=== PATIENT | male | born 1960 | race Caucasian/White ===

== ENCOUNTER 2017-01-27 18:25 | Inpatient (IN) | payer OTHER ==
[~2017-01-27] VITALS: Ht 177.8 cm; Wt 96.0 kg
[~2017-01-27 18:25] MED LIST: VANCOMYCIN INJ 1,300 MG in SODIUM CHLORIDE 0.9% 250ML 250 ML IV SCH
[2017-01-27] MEDS ORDERED: KETOROLAC TROMETHAMINE 30 MG/ML VIAL IV STA (19:03)
[2017-01-27] MEDS ORDERED: ACETAMINOPHEN 500 MG TAB PO STA (19:03)
[2017-01-27] MEDS ORDERED: PIPERACILLIN/TAZOBACTAM 4.5 GM/100ML D5W IV STA (19:03)
[2017-01-27] MEDS ORDERED: SODIUM CHLORIDE 0.9% 1000ML 1,000 ML IV ONE (19:03)
--- NOTE | 2017-01-27 19:12 | EMERGENCY ROOM VISIT NOTE ---
History Report prepared by Shiraz: Karla Cash Under the Supervision of: Dr. Juancarlos Brumfield M.D. First contact with patient: 18:57 Chief Complaint: INFECTION Stated Complaint: BITE ON RT SIDE OF CHEST/UNDER ARMPIT, ACHEY History of Present Illness The patient is a 56 year old male who presents to the Emergency Room with complaints of an infection on the right side of his chest and under his right axilla that began 3 days ago. The patient states that he also has had a headache since the onset of this infection, and feels like he has the flu. He is febrile and has a stuffy nose and a dry throat. The patient reports that he has not eaten in 3 days. He states that his ears feel like "they are full of water." He denies urinary symptoms, a sore throat, vomiting, and diarrhea. The patient is not diabetic. Source of History: patient Onset: 3 days ago Position: chest (right), other (underneath right axilla ) Quality: other (infection) Associated Symptoms: + fevers (Additional symptoms: stuffy nose, dry throat) , No sorethroat, No vomiting, No diarrhea, No urinary symptoms Review of Systems See HPI for pertinent positives & negatives. A total of 10 systems reviewed and were otherwise negative. Past Medical & Surgical Medical Problems: (1) blood clot leg (2) Cellulitis of arm (3) Ulcer Family History Cancer Diabetes mellitus FH: heart disease FH: hypertension Social History Smoking Status: Never Smoker Alcohol Use: none Current/Historical Medications No Active Prescriptions or Reported Meds Allergies Coded Allergies: No Known Allergies (Unverified , 01/27/17) Physical Exam Vital Signs Date Time Temp Pulse Resp B/P (MAP) Pulse Ox O2 Delivery O2 Flow Rate FiO2 01/27/17 20:48 87 01/27/17 20:44 37.4 88 18 118/76 95 Room Air 01/27/17 19:42 108 18 139/97 94 Room Air 01/27/17 19:31 Room Air 01/27/17 18:43 38.8 123 18 150/99 95 Room Air Physical Exam GENERAL: Patient is in no acute distress. HEENT: No acute trauma, normocephalic atraumatic, mucous membranes moist, no nasal congestion, no scleral icterus. NECK: No stridor, no adenopathy, no meningismus, trachea is midline. LUNGS: Clear to auscultation bilaterally, no wheeze, no rhonchi, breath sounds equal. HEART: Tachycardic with a regular rhythm. No murmurs. ABDOMEN: Soft, nontender, bowel sounds positive, no hernias, no peritonitis. EXTREMITIES: No cyanosis or edema, full range of motion of all the joints without pain or difficulty, no signs for acute trauma. NEUROLOGIC: Oriented x 3, no acute motor or sensory deficits, no focal weakness. SKIN: Tender, erythematous, presumed abscess in right axilla with surrounding cellulitis around 10 cm in diameter. Medical Decision & Procedures ER Provider Diagnostic Interpretation: Radiology results as stated below per my review and radiologist interpretation: RIGHT AXILLARY ULTRASOUND CLINICAL HISTORY: Bite. Evaluate for abscess. COMPARISON STUDY: No previous studies for comparison. FINDINGS: Note is made of a 3.1 x 0.3 x 3.1 cm subcutaneous hypoechoic focus within the right axilla. IMPRESSION: 3.1 x 0.3 x 3.1 cm subcutaneous hypoechoic focus within the right axilla. This does not appear to represent a well-defined fluid collection and could reflect phlegmon however a small developing abscess could appear similar. Electronically signed by: Nelson Santos M.D. 01/27/2017 8:32 PM Dictated Date/Time: 01/27/2017 8:31 PM X-ray results as stated below per interpretation by me and the radiologist: CHEST ONE VIEW PORTABLE CLINICAL HISTORY: Sepsis. COMPARISON STUDY: No previous studies for comparison. FINDINGS: There is mild elevation of the right hemidiaphragm. Minimal right lower lung opacity favors atelectasis. There is no consolidation. Cardiac size is normal. There is no evidence of pulmonary edema. No pneumothorax or pleural effusion is identified. IMPRESSION: 1. No acute cardiopulmonary findings. 2. Mild elevation of the right hemidiaphragm with subsegmental right lower lung atelectasis. Electronically signed by: Nelson Santos M.D. 01/27/2017 7:52 PM Dictated Date/Time: 01/27/2017 7:51 PM Laboratory Results 01/27/17 19:19 Red Blood Count 5.42, Mean Corpuscular Volume 88.4, Mean Corpuscular Hemoglobin 31.0, Mean Corpuscular Hemoglobin Concent 35.1, Mean Platelet Volume 9.3, Neutrophils (%) (Auto) 81.1, Lymphocytes (%) (Auto) 8.4, Monocytes (%) (Auto) 9.9, Eosinophils (%) (Auto) 0.0, Basophils (%) (Auto) 0.4, Neutrophils # (Auto) 10.00, Lymphocytes # (Auto) 1.04, Monocytes # (Auto) 1.22, Eosinophils # (Auto) 0.00, Basophils # (Auto) 0.05 01/27/17 19:19 Test 01/27/17 19:19 01/27/17 19:29 White Blood Count 12.34 K/uL (4.8-10.8) Red Blood Count 5.42 M/uL (4.7-6.1) Hemoglobin 16.8 g/dL (14.0-18.0) Hematocrit 47.9 % (42-52) Mean Corpuscular Volume 88.4 fL (80-100) Mean Corpuscular Hemoglobin 31.0 pg (25-34) Mean Corpuscular Hemoglobin Concent 35.1 g/dl (32-36) Platelet Count 266 K/uL (130-400) Mean Platelet Volume 9.3 fL (7.4-10.4) Neutrophils (%) (Auto) 81.1 % Lymphocytes (%) (Auto) 8.4 % Monocytes (%) (Auto) 9.9 % Eosinophils (%) (Auto) 0.0 % Basophils (%) (Auto) 0.4 % Neutrophils # (Auto) 10.00 K/uL (1.4-6.5) Lymphocytes # (Auto) 1.04 K/uL (1.2-3.4) Monocytes # (Auto) 1.22 K/uL (0.11-0.59) Eosinophils # (Auto) 0.00 K/uL (0-0.5) Basophils # (Auto) 0.05 K/uL (0-0.2) RDW Standard Deviation 41.6 fL (36.4-46.3) RDW Coefficient of Variation 12.9 % (11.5-14.5) Immature Granulocyte % (Auto) 0.2 % Immature Granulocyte # (Auto) 0.03 K/uL (0.00-0.02) Prothrombin Time 11.4 SECONDS (9.0-12.0) Prothromb Time International Ratio 1.1 (0.9-1.1) Activated Partial Thromboplast Time 32.0 SECONDS (21.0-31.0) Partial Thromboplastin Ratio 1.2 Anion Gap 10.0 mmol/L (3-11) Est Creatinine Clear Calc Drug Dose 75.5 ml/min Estimated GFR () 71.7 Estimated GFR (Non- 61.9 BUN/Creatinine Ratio 11.9 (10-20) Calcium Level 9.3 mg/dl (8.5-10.1) Total Bilirubin 1.4 mg/dl (0.2-1) Aspartate Amino Transf (AST/SGOT) 27 U/L (15-37) Alanine Aminotransferase (ALT/SGPT) 42 U/L (12-78) Alkaline Phosphatase 98 U/L (45-117) Total Protein 8.6 gm/dl (6.4-8.2) Albumin 4.2 gm/dl (3.4-5.0) Globulin 4.4 gm/dl (2.5-4.0) Albumin/Globulin Ratio 1.0 (0.9-2) Lyme Disease IgG Antibody NEG (NEG) Lyme Disease IgM Antibody NEG (NEG) Bedside Lactic Acid Venous 1.43 mmol/L (0.90-1.70) Laboratory results reviewed by me. Medications Administered Medications (Trade) Dose Ordered Sig/Diamond Route Start Time Stop Time Status Last Admin Dose Admin Sodium Chloride 1,000 ml @ 999 mls/hr Q1H1M ONCE IV 01/27/17 19:03 01/27/17 20:03 DC 01/27/17 19:33 999 MLS/HR Piperacillin Sod/ Tazobactam Sod (Zosyn Iv) 4.5 gm ONE STAT IV 01/27/17 19:03 01/27/17 19:08 DC 01/27/17 19:32 4.5 GM Acetaminophen (Tylenol Tab) 1,000 mg NOW STAT PO 01/27/17 19:03 01/27/17 19:08 DC 01/27/17 19:33 1,000 MG Ketorolac Tromethamine (Toradol Inj) 30 mg NOW STAT IV 01/27/17 19:03 01/27/17 19:08 DC 01/27/17 19:33 30 MG Vancomycin HCl (Vancomycin 1gm/ 270ml Nss) 1 gm NOW STAT IV 01/27/17 21:25 6/7/17 21:26 DC 01/27/17 22:18 1 GM ED Course 1899: The patient was evaluated in room B7. A complete history and physical exam was performed. 1902: Ordered Toradol Inj 30 mg IV, Tylenol Tab 1,000 mg PO, Zosyn Iv 4.5 mg IV , Sodium Chloride 1,000 ml @ 999 mls/hr IV. 2124: Ordered Vancomycin HCl 1 gm IV. 2349: Upon reexamination the patient is resting comfortably. I discussed results and treatment plan with the patient. He verbalizes agreement and understanding. The patient will be evaluated for further management. Medical Decision The patient is a 56 year old male who presents to the ED with complaints of an infection. Differential diagnoses considered include abscess, cellulitis, bacteremia, sepsis, dehydration, electrolyte imbalance, and pneumonia. There is a mild leukocytosis which would be consistent with infection. No concerning anemia. No significant electrolyte abnormality, kidney failure or hepatitis. Blood cultures are pending. Chest x-ray does not show pneumonia or CHF. Ultrasound shows a phlegmon in the area of the cellulitis, no obvious abscess. Lactic acid level is not elevated making severe sepsis less likely. The patient received IV saline, he was given IV Zosyn and IV vancomycin. He received oral Tylenol. He received IV Toradol. The patient is doing well, he feels improved. He does have early signs of sepsis/SIRS. I do think admission/observation is warranted. He may even need surgical intervention if this collection becomes more of an abscess. I did speak to the patient and case management. The on-call hospitalist was consulted. Medication Reconciliation: I attest that I have personally reviewed the patient' s current medication list. Blood Pressure Screening: Patient was found to have normal blood pressure on screening and does not require follow-up. Consults Time Called: [phone] Consulting Physician: Dr. Willams - Internal Medicine Returned Call: [phone] Discussed the patient's case. The patient will be evaluated for further management. Impression Primary Impression: SIRS (systemic inflammatory response syndrome) Additional Impressions: Cellulitis Fever Scribe Attestation The scribe's documentation has been prepared under my direction and personally reviewed by me in its entirety. I confirm that the note above accurately reflects all work, treatment, procedures, and medical decision making performed by me. Departure Information Dispostion Being Evaluated By Hospitalist Prescriptions No Active Prescriptions or Reported Meds Referrals No Doctor, Assigned (PCP) Patient Instructions My [facility] Problem Qualifiers
[2017-01-27 19:38] LABS: BASO % 0.4 %; BASO ABS # 0.05 K/uL (0-0.2); COMPLETE YES; HEMATOCRIT 47.9 % (42-52); IG% 0.2 %; LYMPH % 8.4 %; LYMPH ABS # 1.04 K/uL (1.2-3.4); MEAN CELL VOLUME 88.4 fL (80-100); MEAN CORPUSCULAR HGB CONC 35.1 g/dl (32-36); MEAN PLATELET VOLUME 9.3 fL (7.4-10.4); MONO % 9.9 %; NEUT % 81.1 %; PLATELET COUNT 266 K/uL (130-400); RED BLOOD COUNT 5.42 M/uL (4.7-6.1); WHITE BLOOD COUNT 12.34 K/uL (4.8-10.8)
--- NOTE | 2017-01-27 19:53 | DIAGNOSTIC IMAGING REPORT ---
CHEST ONE VIEW PORTABLE CLINICAL HISTORY: Sepsis. COMPARISON STUDY: No previous studies for comparison. FINDINGS: There is mild elevation of the right hemidiaphragm. Minimal right lower lung opacity favors atelectasis. There is no consolidation. Cardiac size is normal. There is no evidence of pulmonary edema. No pneumothorax or pleural effusion is identified. IMPRESSION: 1. No acute cardiopulmonary findings. 2. Mild elevation of the right hemidiaphragm with subsegmental right lower lung atelectasis. Electronically signed by: Nelson Santos M.D. 01/27/2017 7:52 PM Dictated Date/Time: 01/27/2017 7:51 PM
[2017-01-27 19:54] LABS: INR 1.1 (0.9-1.1); PARTIAL THROMBOPLASTIN RATIO 1.2; PROTHROMBIN TIME (PATIENT) 11.4 SECONDS (9.0-12.0)
[2017-01-27 19:57] LABS: BUN/CREATININE RATIO 11.9 (10-20); CALCIUM 9.3 mg/dl (8.5-10.1); CREATININE 1.3 mg/dl (0.60-1.40); POTASSIUM 3.8 mmol/L (3.5-5.1)
--- NOTE | 2017-01-27 20:34 | DIAGNOSTIC IMAGING REPORT ---
RIGHT AXILLARY ULTRASOUND CLINICAL HISTORY: Bite. Evaluate for abscess. COMPARISON STUDY: No previous studies for comparison. FINDINGS: Note is made of a 3.1 x 0.3 x 3.1 cm subcutaneous hypoechoic focus within the right axilla. IMPRESSION: 3.1 x 0.3 x 3.1 cm subcutaneous hypoechoic focus within the right axilla. This does not appear to represent a well-defined fluid collection and could reflect phlegmon however a small developing abscess could appear similar. Electronically signed by: Nelson Santos M.D. 01/27/2017 8:32 PM Dictated Date/Time: 01/27/2017 8:31 PM
[2017-01-27] MEDS ORDERED: VANCOMYCIN 1GM/270ML NSS IV STA (21:25)
[2017-01-27] MEDS ORDERED: ZOLPIDEM TARTRATE 5 MG TAB PO PRN (21:45)
[2017-01-27] MEDS ORDERED: POLYETHYLENE (MIRALAX) 17 GM PACK PO PRN (21:45)
[2017-01-27] MEDS ORDERED: ONDANSETRON INJ 2 MG/ML 2 ML VIAL IV PRN (21:45)
[2017-01-27] MEDS ORDERED: TRAMADOL HCL 50 MG TAB PO PRN (21:45)
[2017-01-27] MEDS ORDERED: ALUMINUM/MAGNESIUM/SIMETH (MAALOX MAX) 30 ML UDC PO PRN (21:45)
[2017-01-27] MEDS ORDERED: MAGNESIUM HYDROXIDE SUSP 30 ML UDC PO PRN (21:45)
--- NOTE | 2017-01-27 22:32 | History and Physical ---
History & Physical Date & Time of Service: Jan 27, 2017 at 22:26 Chief Complaint: Bite On Rt Side Of Chest/Under Armpit, [place] Primary Care Physician: Kojo Alejandre M.D. History of Present Illness Source: patient 56 y/o M who denies a significant medical history. Pt noted a circular tender rash forming just below his R armpit. He developed a concomitant flu-like illness with fevers and malaise. He is unable to recall if he sustained a tick bite. [place] is a [place] and [place]. Past Medical/Surgical History Denies active medical issues. Family History CAD Social History Smoking Status: Never Smoker Multi-Drug Resistant Organisms History of MDRO: No Allergies Coded Allergies: No Known Allergies (Unverified , 01/27/17) Home Medications No Active Prescriptions or Reported Meds Review of Systems Constitutional: + fever, + chills, No sweats Eyes: No worsening of vision, No eye pain ENT: No hearing loss, No unusual epistaxis, No nasal symptoms Respiratory: No cough, No sputum, No wheezing Cardiovascular: No chest pain, No orthopnea, No PND Abdomen: No pain, No nausea, No vomiting Musculoskeletal: No joint pain, No muscle pain Genitourinary - Male: No hematuria, No dysuria, No urinary frequency, No urinary urgency Neurologic: No memory loss, No paralysis, No weakness Psychiatric: No depression symptoms Endocrine: No fatigue Hematologic / Lymphatic: No abnormal bleeding/bruising Integumentary: + rash, + new/changing skin lesions Allergic / Immunologic: No environmental allergies Physical Exam Vital Signs Date Time Temp Pulse Resp B/P (MAP) Pulse Ox O2 Delivery O2 Flow Rate FiO2 01/27/17 20:48 87 01/27/17 20:44 37.4 88 18 118/76 95 Room Air 01/27/17 19:42 108 18 139/97 94 Room Air 01/27/17 19:31 Room Air 01/27/17 18:43 38.8 123 18 150/99 95 Room Air General Appearance: WD/WN, no apparent distress Head: normocephalic, atraumatic Eyes: normal inspection, PERRL, EOMI ENT: normal ENT inspection, hearing grossly normal, TMs normal, pharynx normal Neck: supple, no adenopathy, thyroid normal, no JVD Respiratory/Chest: chest non-tender, lungs clear, normal breath sounds, no respiratory distress, no accessory muscle use Cardiovascular: regular rate, rhythm, no edema, no gallop, no JVD, no murmur, normal peripheral pulses Abdomen/GI: normal bowel sounds, non tender, soft Back: normal inspection, no CVA tenderness, no muscle spasm, normal range of motion Extremities/Musculoskelatal: normal inspection, no calf tenderness, normal capillary refill, no pedal edema, normal range of motion Neurologic/Psych: juvenile justice officer II-XII nml as tested, no motor/sensory deficits, alert, normal mood/affect, normal reflexes, oriented x 3 Skin: + pertinent finding (There is a circular bulseye rash which would be consistent with Lyme, just below and extending into the axilla. There is a raised tender, erythematous central area measuring approxinately 2-3 inches accross) Diagnostics Laboratory Results Results Past 24 Hours Test 01/27/17 19:19 01/27/17 19:29 Range/Units White Blood Count 12.34 4.8-10.8 K/uL Red Blood Count 5.42 4.7-6.1 M/uL Hemoglobin 16.8 14.0-18.0 g/dL Hematocrit 47.9 42-52 % Mean Corpuscular Volume 88.4 80-100 fL Mean Corpuscular Hemoglobin 31.0 25-34 pg Mean Corpuscular Hemoglobin Concent 35.1 32-36 g/dl Platelet Count 266 130-400 K/uL Mean Platelet Volume 9.3 7.4-10.4 fL Neutrophils (%) (Auto) 81.1 % Lymphocytes (%) (Auto) 8.4 % Monocytes (%) (Auto) 9.9 % Eosinophils (%) (Auto) 0.0 % Basophils (%) (Auto) 0.4 % Neutrophils # (Auto) 10.00 1.4-6.5 K/uL Lymphocytes # (Auto) 1.04 1.2-3.4 K/uL Monocytes # (Auto) 1.22 0.11-0.59 K/uL Eosinophils # (Auto) 0.00 0-0.5 K/uL Basophils # (Auto) 0.05 0-0.2 K/uL RDW Standard Deviation 41.6 36.4-46.3 fL RDW Coefficient of Variation 12.9 11.5-14.5 % Immature Granulocyte % (Auto) 0.2 % Immature Granulocyte # (Auto) 0.03 0.00-0.02 K/uL Prothrombin Time 11.4 9.0-12.0 SECONDS Prothromb Time International Ratio 1.1 0.9-1.1 Activated Partial Thromboplast Time 32.0 21.0-31.0 SECONDS Partial Thromboplastin Ratio 1.2 Sodium Level 139 136-145 mmol/L Potassium Level 3.8 3.5-5.1 mmol/L Chloride Level 102 98-107 mmol/L Carbon Dioxide Level 27 21-32 mmol/L Anion Gap 10.0 3-11 mmol/L Blood Urea Nitrogen 16 7-18 mg/dl Creatinine 1.30 0.60-1.40 mg/dl Est Creatinine Clear Calc Drug Dose 75.5 ml/min Estimated GFR () 71.7 Estimated GFR (Non- 61.9 BUN/Creatinine Ratio 11.9 10-20 Random Glucose 112 70-99 mg/dl Calcium Level 9.3 8.5-10.1 mg/dl Total Bilirubin 1.4 0.2-1 mg/dl Aspartate Amino Transf (AST/SGOT) 27 15-37 U/L Alanine Aminotransferase (ALT/SGPT) 42 12-78 U/L Alkaline Phosphatase 98 45-117 U/L Total Protein 8.6 6.4-8.2 gm/dl Albumin 4.2 3.4-5.0 gm/dl Globulin 4.4 2.5-4.0 gm/dl Albumin/Globulin Ratio 1.0 0.9-2 Bedside Lactic Acid Venous 1.43 0.90-1.70 mmol/L Microbiology Results 01/27/17 Blood Culture, Received Pending 01/27/17 Blood Culture, Received Pending Diagnostic Radiology US axialle R: 3.1 x 0.3 x 3.1 cm subcutaneous hypoechoic focus within the right axilla. This does not appear to represent a well-defined fluid collection and could reflect phlegmon however a small developing abscess could appear similar. Impression Assessment and Plan 56 y/o M who denies a significant medical history. Pt noted a circular tender rash forming just below his R armpit. He developed a concomitant flu-like illness with fevers and malaise. He is unable to recall if he sustained a tick bite. He is a [place] and [place]. The pt's rash in addition to his systemic symptoms are consistent with acute Lyme disease. There is concern however for superinfection and abscess formation. As we cannot determine if his systemic symptoms are due to cellulitis and a possible early abscess or to Lyme, we will place him on IV Vanc and Ceftriaxone pending culture results. We have consulted surgery to determine if he will need debridement. Lyme serology is initially negative however, this may be due to a lack of seroconversion in the acute phase. Clinically we would presume this to be Lyme and treat regardless, perhaps retesting in a few weeks. A course of Doxycycline may be an appropriate choice for outpatient treatment to cover both lyme and possibly staph. Full code - Heparin prophylaxis Total time for this admit including review of labs , meds - discussion with pt and ER attending 35 min Level of Care Med/Surg Resuscitation Status FULL RESUSCITATION VTE Prophylaxis VTE Risk Assessment Done? Y/N: Yes Risk Level: Low Given or contraindicated: Unfractionated heparin SQ
[2017-01-27] MEDS ORDERED: CEFTRIAXONE SOD INJ 1 GM in DEXTROSE 5% ADD-VANTAGE 50ML 50 ML IV STA (22:52)
[2017-01-27 23:03] LABS: LYME DISEASE AB IGG NEG (NEG); LYME DISEASE AB IGM NEG (NEG)
[2017-01-27] MEDS ORDERED: VANCOMYCIN CONSULT ACTIVE PRN (23:15)
[2017-01-27 23:55] VITALS: BP 126/87; PULSE 66; TEMP 36.6; O2SAT 96
[2017-01-28] VITALS (8 sets, daily range): BP systolic 126–155; BP diastolic 87–95; PULSE 66–88; TEMP 36.6–38; O2SAT 93–96; Ht 177.8 cm; Wt 96.0 kg
[2017-01-28] MEDS: NSS + 20MEQ KCL 1000ML 1,000 ML IV SCH ×2 (00:01→07:35)
[2017-01-28] MEDS ORDERED: VANCOMYCIN INJ 1,300 MG in SODIUM CHLORIDE 0.9% 250ML 250 ML IV SCH (00:30)
[2017-01-28] MEDS ORDERED: CLINDAMYCIN IV 600 MG in DEXTROSE 5% ADD-VANTAGE 50ML 50 ML IV SCH (04:00)
[2017-01-28] MEDS: HEPARIN SOD 5000 UNIT/0.5 ML CARP SQ SCH ×3 (06:11→21:22)
[2017-01-28] MEDS: LACTOBACILLUS ACIDOPHILUS (FLORANEX) TAB PO SCH ×3 (07:35→17:31)
[2017-01-28] MEDS: ACETAMINOPHEN 325 MG TAB PO PRN ×2 (07:38→17:31)
--- NOTE | 2017-01-28 08:29 | Pharmacy Progress Note ---
Pharmacy Abx Initial Consult Date of Service Jan 28, 2017. Pharmacy Dosing Scope Date of Consult: 01/28/17 Consultation requested by: Dr. Willams Pharmacy is consulted to initiate vancomycin IV dosing therapy, order appropriate labs and adjust drug dose/frequency. Subjective The patient is a 56 year old male admitted on Jan 27, 2017 at 21:45 for arm cellulitis. Objective Height (Feet): 5 Height (Inches): 10.00 Weight (Kilograms): 96.000 Vital Signs (Past 12Hrs) Vital Signs Past 12 Hours Date Time Temp Pulse Resp B/P (MAP) Pulse Ox O2 Delivery O2 Flow Rate FiO2 01/28/17 08:05 Room Air 01/28/17 07:31 38.0 88 18 155/89 (111) 93 Room Air 01/28/17 00:57 36.6 66 19 126/87 96 Room Air 01/27/17 23:55 36.6 66 18 126/87 (100) 96 Room Air 01/27/17 22:15 74 18 109/66 95 Room Air 01/27/17 20:48 87 01/27/17 20:44 37.4 88 18 118/76 95 Room Air Lab Results (24Hrs) Test 01/27/17 19:19 01/27/17 19:29 White Blood Count 12.34 K/uL (4.8-10.8) Red Blood Count 5.42 M/uL (4.7-6.1) Hemoglobin 16.8 g/dL (14.0-18.0) Hematocrit 47.9 % (42-52) Mean Corpuscular Volume 88.4 fL (80-100) Mean Corpuscular Hemoglobin 31.0 pg (25-34) Mean Corpuscular Hemoglobin Concent 35.1 g/dl (32-36) Platelet Count 266 K/uL (130-400) Mean Platelet Volume 9.3 fL (7.4-10.4) Neutrophils (%) (Auto) 81.1 % Lymphocytes (%) (Auto) 8.4 % Monocytes (%) (Auto) 9.9 % Eosinophils (%) (Auto) 0.0 % Basophils (%) (Auto) 0.4 % Neutrophils # (Auto) 10.00 K/uL (1.4-6.5) Lymphocytes # (Auto) 1.04 K/uL (1.2-3.4) Monocytes # (Auto) 1.22 K/uL (0.11-0.59) Eosinophils # (Auto) 0.00 K/uL (0-0.5) Basophils # (Auto) 0.05 K/uL (0-0.2) RDW Standard Deviation 41.6 fL (36.4-46.3) RDW Coefficient of Variation 12.9 % (11.5-14.5) Immature Granulocyte % (Auto) 0.2 % Immature Granulocyte # (Auto) 0.03 K/uL (0.00-0.02) Prothrombin Time 11.4 SECONDS (9.0-12.0) Prothromb Time International Ratio 1.1 (0.9-1.1) Activated Partial Thromboplast Time 32.0 SECONDS (21.0-31.0) Partial Thromboplastin Ratio 1.2 Sodium Level 139 mmol/L (136-145) Potassium Level 3.8 mmol/L (3.5-5.1) Chloride Level 102 mmol/L (98-107) Carbon Dioxide Level 27 mmol/L (21-32) Anion Gap 10.0 mmol/L (3-11) Blood Urea Nitrogen 16 mg/dl (7-18) Creatinine 1.30 mg/dl (0.60-1.40) Est Creatinine Clear Calc Drug Dose 75.5 ml/min Estimated GFR () 71.7 Estimated GFR (Non- 61.9 BUN/Creatinine Ratio 11.9 (10-20) Random Glucose 112 mg/dl (70-99) Calcium Level 9.3 mg/dl (8.5-10.1) Total Bilirubin 1.4 mg/dl (0.2-1) Aspartate Amino Transf (AST/SGOT) 27 U/L (15-37) Alanine Aminotransferase (ALT/SGPT) 42 U/L (12-78) Alkaline Phosphatase 98 U/L (45-117) Total Protein 8.6 gm/dl (6.4-8.2) Albumin 4.2 gm/dl (3.4-5.0) Globulin 4.4 gm/dl (2.5-4.0) Albumin/Globulin Ratio 1.0 (0.9-2) Lyme Disease IgG Antibody NEG (NEG) Lyme Disease IgM Antibody NEG (NEG) Bedside Lactic Acid Venous 1.43 mmol/L (0.90-1.70) Serology Item Value Date Time Lyme Disease IgG Antibody NEG 01/27/171918 Lyme Disease IgM Antibody NEG 01/27/171918 Micro Results Date/Time Source Procedure Growth Status 01/27/17 19:29 Blood Blood Culture Pending Received 01/27/17 19:19 Blood Blood Culture Pending Received Assessment & Plan Assessment 56 year old male admitted with arm cellulitis, potential Lyme's disease. No pertinent PMH. Patient is a alvares and [place]. He has been started on vancomycin and Rocephin for cellulitis with possible abscess. Est PK parameters for vancomycin: Vd 0.7 L/kg, catarina 0.067, t1/2 10.3 Unknown baseline SCr so dosed based on current SCr of 1.3 Plan Vancomycin IV * Loading dose: total of 2300 mg (25 mg/kg) was given overnight * Maintenance dose: 1250 mg IV (13 mg/kg) every 12 hours * Goal trough level for cellulitis : 10 to 15 mcg/mL * Trough level ordered for 01/29/17 prior to the 5th overall dose Rocephin not being dosed by pharmacy Pharmacy will continue to follow and will adjust dose/frequency as necessary. Thank you.
[2017-01-28] MEDS ORDERED: LIDOCAINE HCL 1% 20 ML VIAL ONE (09:32)
[2017-01-28] MEDS ORDERED: NURSING VERBAL MED ORDER ONE (10:00)
--- NOTE | 2017-01-28 10:03 | [facility] Post Operative Brief Note ---
Immediate Operative Summary Operative Date Jan 28, 2017. Pre-Operative Diagnosis abscess on right axillary Post-Operative Diagnosis same Procedure(s) Performed I/D abscess on right axillary at bedside Surgeon Corine Robles MD Line Manager Surgeon(s) ALVARADO Orellana Estimated Blood Loss 5ml Findings abscess, wound culture sent, Fluids (cc crystalloids) N/A Specimens wound culture Drains packing Anesthesia local Complication(s) None Disposition
--- NOTE | 2017-01-28 10:03 | Surgery Consultation ---
Consultation Date of Consultation: Jan 28, 2017. Attending Physician: Pietro Willams M.D. Reason for Consultation: Right axilla cellulitis possible abscess History of Present Illness Eugene is a pleasant 56 year-old male who presented to emergency department yesterday with complaint of swelling and redness of the right axilla for 3 days. States he had associated nausea, chills, and decreased appetite. Unsure if he got bit by an insect or not. Works on a 4 acre farm. Had a circular rash at the axilla. Denies of any fever, diarrhea, abdominal pain, change in bowel habits. Has never had any prior skin infections. States the pain was severe unable to touch it without pain. He had a slight leukocytosis of 12.34 and an ultrasound of the right axilla showed possible 3 x 3 cm fluid collection either a flegmon or abscess with associated cellulitis. He has been placed on IV Zosyn and Vancomycin Lyme antibodies were negative Past Medical/Surgical History Medical Problems: (1) Cellulitis Status: Acute (2) Fever Status: Acute (3) SIRS (systemic inflammatory response syndrome) Status: Acute Family History Cancer Diabetes mellitus FH: heart disease FH: hypertension Social History Smoking Status: Never Smoker Allergies Coded Allergies: No Known Allergies (Unverified , 01/27/17) Home Medications No Active Prescriptions or Reported Meds Current Inpatient Medications Current Inpatient Medications Medications (Trade) Dose Ordered Sig/Diamond Route Start Time Stop Time Status Last Admin Dose Admin Potassium Chloride/Sodium Chloride 1,000 ml @ 125 mls/hr Q8H IV 01/27/17 23:00 01/28/17 14:59 01/28/17 07:35 125 MLS/HR Heparin Sodium (Porcine) (Heparin Sq 5000 Unit/0.5ml) 5,000 unit Q8H SQ 01/28/17 06:00 02/27/17 05:59 01/28/17 06:11 5,000 UNIT Acetaminophen (Tylenol Tab) 650 mg Q4H PRN PO 01/27/17 21:45 02/26/17 21:44 01/28/17 07:38 650 MG Al Hydrox/Mg Hydrox/Simethicone (Maalox Max Susp) 15 ml Q4H PRN PO 01/27/17 21:45 02/26/17 21:44 Magnesium Hydroxide (Milk Of Magnesia Susp) 30 ml Q6H PRN PO 01/27/17 21:45 02/26/17 21:44 Polyethylene (Miralax Powder Packet) 17 gm DAILY PRN PO 01/27/17 21:45 02/26/17 21:44 Zolpidem Tartrate (Ambien Tab) 5 mg HSZ PRN PO 01/27/17 21:45 02/26/17 21:44 Ondansetron HCl (Zofran Inj) 4 mg Q6H PRN IV 01/27/17 21:45 02/26/17 21:44 Tramadol HCl (Ultram Tab) 50 mg Q4H PRN PO 01/27/17 21:45 02/26/17 21:44 01/28/17 06:10 50 MG Lactobacillus Acidophilus (Floranex Tab) 4 tab TIDM PO 01/28/17 08:00 02/27/17 07:59 01/28/17 07:35 4 TAB Vancomycin HCl (Consult) 1 ea UD PRN N/A 01/27/17 23:15 02/26/17 23:14 Ceftriaxone Sodium 1000 mg/ Dextrose 60 ml @ 100 mls/hr Q24H IV 01/28/17 22:00 02/07/17 21:59 Vancomycin HCl 1250 mg/Sodium Chloride 275 ml @ 125 mls/hr Q12@0000,1200 IV 01/28/17 12:00 02/07/17 11:59 Bacitracin (Bacitracin Oint) 1 appln DAILY EXT 01/29/17 08:00 02/28/17 07:59 Miscellaneous Information (Nursing Verbal Med Order) 1 ea ONE ONCE N/A 01/28/17 10:00 01/28/17 10:01 UNV Review of Systems Constitutional: + fever (low grade fever ), + chills, + sweats Respiratory: No shortness of breath Cardiovascular: No chest pain Abdomen: + nausea, No pain, No diarrhea, No constipation Integumentary: + problem reported (redness and pain under the right arm) Physical Exam Date Time Temp Pulse Resp B/P (MAP) Pulse Ox O2 Delivery O2 Flow Rate FiO2 01/28/17 08:36 37.5 01/28/17 08:05 Room Air 01/28/17 07:31 38.0 88 18 155/89 (111) 93 Room Air 01/28/17 00:57 36.6 66 19 126/87 96 Room Air 01/27/17 23:55 36.6 66 18 126/87 (100) 96 Room Air 01/27/17 22:15 74 18 109/66 95 Room Air 01/27/17 20:48 87 01/27/17 20:44 37.4 88 18 118/76 95 Room Air 01/27/17 19:42 108 18 139/97 94 Room Air 01/27/17 19:31 Room Air 01/27/17 18:43 38.8 123 18 150/99 95 Room Air General Appearance: WD/WN, no apparent distress Head: normocephalic, atraumatic Eyes: sclerae normal Respiratory/Chest: no respiratory distress, no accessory muscle use Back: normal inspection Extremities/Musculoskelatal: normal inspection Neurologic/Psych: alert, normal mood/affect, oriented x 3 Skin: warm/dry, + pertinent finding (There is erythema of the axilla with a somewhat bullseye rash with some purulence suggesting possible abscess. Not much induration.) Laboratory Results Last 24 Hours Test 01/27/17 19:19 01/27/17 19:29 White Blood Count 12.34 K/uL Red Blood Count 5.42 M/uL Hemoglobin 16.8 g/dL Hematocrit 47.9 % Mean Corpuscular Volume 88.4 fL Mean Corpuscular Hemoglobin 31.0 pg Mean Corpuscular Hemoglobin Concent 35.1 g/dl Platelet Count 266 K/uL Mean Platelet Volume 9.3 fL Neutrophils (%) (Auto) 81.1 % Lymphocytes (%) (Auto) 8.4 % Monocytes (%) (Auto) 9.9 % Eosinophils (%) (Auto) 0.0 % Basophils (%) (Auto) 0.4 % Neutrophils # (Auto) 10.00 K/uL Lymphocytes # (Auto) 1.04 K/uL Monocytes # (Auto) 1.22 K/uL Eosinophils # (Auto) 0.00 K/uL Basophils # (Auto) 0.05 K/uL RDW Standard Deviation 41.6 fL RDW Coefficient of Variation 12.9 % Immature Granulocyte % (Auto) 0.2 % Immature Granulocyte # (Auto) 0.03 K/uL Prothrombin Time 11.4 SECONDS Prothromb Time International Ratio 1.1 Activated Partial Thromboplast Time 32.0 SECONDS Partial Thromboplastin Ratio 1.2 Sodium Level 139 mmol/L Potassium Level 3.8 mmol/L Chloride Level 102 mmol/L Carbon Dioxide Level 27 mmol/L Anion Gap 10.0 mmol/L Blood Urea Nitrogen 16 mg/dl Creatinine 1.30 mg/dl Est Creatinine Clear Calc Drug Dose 75.5 ml/min Estimated GFR () 71.7 Estimated GFR (Non- 61.9 BUN/Creatinine Ratio 11.9 Random Glucose 112 mg/dl Calcium Level 9.3 mg/dl Total Bilirubin 1.4 mg/dl Aspartate Amino Transf (AST/SGOT) 27 U/L Alanine Aminotransferase (ALT/SGPT) 42 U/L Alkaline Phosphatase 98 U/L Total Protein 8.6 gm/dl Albumin 4.2 gm/dl Globulin 4.4 gm/dl Albumin/Globulin Ratio 1.0 Lyme Disease IgG Antibody NEG Lyme Disease IgM Antibody NEG Bedside Lactic Acid Venous 1.43 mmol/L RIGHT AXILLARY ULTRASOUND CLINICAL HISTORY: Bite. Evaluate for abscess. COMPARISON STUDY: No previous studies for comparison. FINDINGS: Note is made of a 3.1 x 0.3 x 3.1 cm subcutaneous hypoechoic focus within the right axilla. IMPRESSION: 3.1 x 0.3 x 3.1 cm subcutaneous hypoechoic focus within the right axilla. This does not appear to represent a well-defined fluid collection and could reflect phlegmon however a small developing abscess could appear similar. Assessment & Plan Right axillary abscess and cellulitis Secondary to insect bite? -slight leukocytosis - slightly febrile this am - Examination shows cellulitis of the right axilla with slight purulence Plan: Plan for incision and drainage of right axilla Culture will be sent Continue IV antibiotics and pain management Packing to be changed daily and apply bacitracin at next dressing change will follow Dr. Robles has seen and examined patient, performed I&D, agrees with above.
--- NOTE | 2017-01-28 10:14 | OPERATIVE REPORT ---
DATE OF OPERATION: 01/28/2017 PREOPERATIVE DIAGNOSIS: Abscess on the right axillary. POSTOPERATIVE DIAGNOSIS: Same. PROCEDURE: I&D abscess on the right axillary. SURGEON: Dr. Corine Robles. ANESTHESIA: Local. ESTIMATED BLOOD LOSS: About 5 mL. FINDINGS: Abscess, wound culture sent. COMPLICATIONS: None. INDICATIONS FOR THE PROCEDURE: This is a 56-year-old gentleman who presented with right-sided axillary infection and redness with some temperature. The patient had ultrasound showed possible abscess on the right axillary. I recommend to do I&D abscess on the right axillary. I did talk to the patient about the benefit and risk, alternate procedure. I indicated the risks may include but not limited such as bleeding, infection, recurrence, may need more procedure. The patient understands. He signed informed consent. I answered all questions. DETAILS OF PROCEDURE: We did the I&D abscess on the patient at bedside. The patient's right axillary was prepped and draped in routine sterile fashion. After a timeout, I injected local anesthesia by using 1% lidocaine. The abscess size about 2 x 3 cm and with some redness area about 6 x 8 cm. Then we used a 15 blade, made a small incision about 1 cm. There was small amount of pus come out. We did send wound culture and then packing the wound. The patient tolerated the procedure well. After the procedure, I gave patient the postop care instructions and wound culture sent. I attest to the content of the Intraoperative Record and any orders documented therein. Any exception s are noted below.
[2017-01-28] MEDS: VANCOMYCIN INJ 1,250 MG in SODIUM CHLORIDE 0.9% 250ML 250 ML IV SCH (11:55)
--- NOTE | 2017-01-28 13:38 | Family Medicine Progress Note ---
Progress Note Date of Service Jan 28, 2017. Subjective Pt evaluation today including: conversation w/ patient, conversation w/ family , physical exam, chart review, conversation w/ documentation consultant Pain: minimal PO Intake: good Voiding: no voiding problems, no incontinence Patient with no acute events overnight He had an I&D at the bedside in order to get rid of the abscess. Some pus was drained from the abscess and was sent for culture. He said he had some chills overnight but denies any night sweats. He also says that the wound has become less painful and red than it was originally Patient denies any other rashes, joint pain, chest pain, palpitations, shortness of breath, leg swelling, cough, abdominal pain, diarrhea or constipation. Additional Comments: please see above for ROS Medications Current Inpatient Medications Medications (Trade) Dose Ordered Sig/Diamond Route Start Time Stop Time Status Last Admin Dose Admin Potassium Chloride/Sodium Chloride 1,000 ml @ 125 mls/hr Q8H IV 01/27/17 23:00 01/28/17 14:59 01/28/17 07:35 125 MLS/HR Heparin Sodium (Porcine) (Heparin Sq 5000 Unit/0.5ml) 5,000 unit Q8H SQ 01/28/17 06:00 02/27/17 05:59 01/28/17 06:11 5,000 UNIT Acetaminophen (Tylenol Tab) 650 mg Q4H PRN PO 01/27/17 21:45 02/26/17 21:44 01/28/17 07:38 650 MG Al Hydrox/Mg Hydrox/Simethicone (Maalox Max Susp) 15 ml Q4H PRN PO 01/27/17 21:45 02/26/17 21:44 Magnesium Hydroxide (Milk Of Magnesia Susp) 30 ml Q6H PRN PO 01/27/17 21:45 02/26/17 21:44 Polyethylene (Miralax Powder Packet) 17 gm DAILY PRN PO 01/27/17 21:45 02/26/17 21:44 Zolpidem Tartrate (Ambien Tab) 5 mg HSZ PRN PO 01/27/17 21:45 02/26/17 21:44 Ondansetron HCl (Zofran Inj) 4 mg Q6H PRN IV 01/27/17 21:45 02/26/17 21:44 Tramadol HCl (Ultram Tab) 50 mg Q4H PRN PO 01/27/17 21:45 02/26/17 21:44 01/28/17 06:10 50 MG Lactobacillus Acidophilus (Floranex Tab) 4 tab TIDM PO 01/28/17 08:00 02/27/17 07:59 01/28/17 11:55 4 TAB Vancomycin HCl (Consult) 1 ea UD PRN N/A 01/27/17 23:15 02/26/17 23:14 Ceftriaxone Sodium 1000 mg/ Dextrose 60 ml @ 100 mls/hr Q24H IV 01/28/17 22:00 02/07/17 21:59 Vancomycin HCl 1250 mg/Sodium Chloride 275 ml @ 125 mls/hr Q12@0000,1200 IV 01/28/17 12:00 02/07/17 11:59 01/28/17 11:55 125 MLS/HR Bacitracin (Bacitracin Oint) 1 appln DAILY EXT 01/29/17 08:00 02/28/17 07:59 Objective Physical Exam General Appearance: WD/WN, no apparent distress Cardiovascular: regular rate, rhythm, no edema, no murmur, + pertinent finding (patient has an erythematous rash with central clearing, has wound packaging with white bandage over wound) Abdomen: normal bowel sounds, non tender, soft Extremities: normal range of motion, non-tender, no calf tenderness, normal capillary refill Neurologic/Psychiatric: alert, normal mood/affect, oriented x 3 Laboratory Results Results Past 24 Hours Test 01/27/17 19:19 01/27/17 19:29 Range/Units White Blood Count 12.34 4.8-10.8 K/uL Red Blood Count 5.42 4.7-6.1 M/uL Hemoglobin 16.8 14.0-18.0 g/dL Hematocrit 47.9 42-52 % Mean Corpuscular Volume 88.4 80-100 fL Mean Corpuscular Hemoglobin 31.0 25-34 pg Mean Corpuscular Hemoglobin Concent 35.1 32-36 g/dl Platelet Count 266 130-400 K/uL Mean Platelet Volume 9.3 7.4-10.4 fL Neutrophils (%) (Auto) 81.1 % Lymphocytes (%) (Auto) 8.4 % Monocytes (%) (Auto) 9.9 % Eosinophils (%) (Auto) 0.0 % Basophils (%) (Auto) 0.4 % Neutrophils # (Auto) 10.00 1.4-6.5 K/uL Lymphocytes # (Auto) 1.04 1.2-3.4 K/uL Monocytes # (Auto) 1.22 0.11-0.59 K/uL Eosinophils # (Auto) 0.00 0-0.5 K/uL Basophils # (Auto) 0.05 0-0.2 K/uL RDW Standard Deviation 41.6 36.4-46.3 fL RDW Coefficient of Variation 12.9 11.5-14.5 % Immature Granulocyte % (Auto) 0.2 % Immature Granulocyte # (Auto) 0.03 0.00-0.02 K/uL Prothrombin Time 11.4 9.0-12.0 SECONDS Prothromb Time International Ratio 1.1 0.9-1.1 Activated Partial Thromboplast Time 32.0 21.0-31.0 SECONDS Partial Thromboplastin Ratio 1.2 Sodium Level 139 136-145 mmol/L Potassium Level 3.8 3.5-5.1 mmol/L Chloride Level 102 98-107 mmol/L Carbon Dioxide Level 27 21-32 mmol/L Anion Gap 10.0 3-11 mmol/L Blood Urea Nitrogen 16 7-18 mg/dl Creatinine 1.30 0.60-1.40 mg/dl Est Creatinine Clear Calc Drug Dose 75.5 ml/min Estimated GFR () 71.7 Estimated GFR (Non- 61.9 BUN/Creatinine Ratio 11.9 10-20 Random Glucose 112 70-99 mg/dl Calcium Level 9.3 8.5-10.1 mg/dl Total Bilirubin 1.4 0.2-1 mg/dl Aspartate Amino Transf (AST/SGOT) 27 15-37 U/L Alanine Aminotransferase (ALT/SGPT) 42 12-78 U/L Alkaline Phosphatase 98 45-117 U/L Total Protein 8.6 6.4-8.2 gm/dl Albumin 4.2 3.4-5.0 gm/dl Globulin 4.4 2.5-4.0 gm/dl Albumin/Globulin Ratio 1.0 0.9-2 Lyme Disease IgG Antibody NEG NEG Lyme Disease IgM Antibody NEG NEG Bedside Lactic Acid Venous 1.43 0.90-1.70 mmol/L Microbiology Results 01/27/17 Blood Culture, Received Pending 01/27/17 Blood Culture, Received Pending Assessment and Plan 56 y/o M with no significant PMH presented to [facility] on 01/27/2017 with a round central rash under his right armpit that was become progressively more painful and was associated with fevers and malaise. Rash appears to be erythema migrans rash. Patient found to have superimposed infection with abscess formation underneath rash. He went for I and D with surgery and is on IV antibiotics awaiting cultures from the wound. Lyme rash with superimposed abscess - Surgery consulted - Abscess drained, packed and sent for culture. - Continue IV antibiotics with Vancomycin and Ceftriaxone - Culture and sensitivities pending - IVF fluids 125 mls/hr, Tramadol prn for pain control DVT prophylaxis - heparin sub q Resident Physician Supervision Note: I was present with PGY1 Dr. Sanket Overton during the history and exam. I discussed the case with the resident and agree with the findings and plan as documented in the note. Any exceptions or clarifications are listed here: none. Pt feels better overall s/p I/D of abscess in the right axillae. No other complaints. Tm 38 BPs mildly high gen - nad right axillae - erythema migrans encompassing most of the armpit; in center of the erythema migrans is an abscess site with packing in place heart - RRR lungs - CTA b/l abd - soft, no HSM ext - no edema A/P: 1. primary lyme's disease - cont rocephin. 2. right axillary abscess s/p I/D - await cx; cont vanco + rocephin. 3. elevated BP w/o dx of HTN - follow for now. Documented By: North Jacques MD Continued [facility] stay due to: multiple IV medications needed
[2017-01-28] MEDS: CEFTRIAXONE SOD INJ 1,000 MG in DEXTROSE 5% 50ML 50 ML IV SCH (21:18)
[2017-01-29] VITALS: O2SAT 96
[2017-01-29] MEDS: VANCOMYCIN INJ 1,250 MG in SODIUM CHLORIDE 0.9% 250ML 250 ML IV SCH ×3 (00:12→23:55)
[2017-01-29] MEDS: HEPARIN SOD 5000 UNIT/0.5 ML CARP SQ SCH ×3 (05:56→21:19)
[2017-01-29 06:28] LABS: HEMATOCRIT 40.4 % (42-52); MEAN CORPUSCULAR HEMOGLOBIN 30.6 pg (25-34); MEAN CORPUSCULAR HGB CONC 34.4 g/dl (32-36); MEAN PLATELET VOLUME 9.3 fL (7.4-10.4); PLATELET COUNT 225 K/uL (130-400); RED BLOOD COUNT 4.54 M/uL (4.7-6.1); WHITE BLOOD COUNT 7.39 K/uL (4.8-10.8)
[2017-01-29 06:44] LABS: BUN/CREATININE RATIO 11.8 (10-20); CALCIUM 8.5 mg/dl (8.5-10.1); CREATININE 0.96 mg/dl (0.60-1.40); POTASSIUM 4.1 mmol/L (3.5-5.1)
[2017-01-29 07:19] VITALS: BP 141/99; PULSE 82; TEMP 37.4; O2SAT 93
[2017-01-29] MEDS: LACTOBACILLUS ACIDOPHILUS (FLORANEX) TAB PO SCH ×3 (08:40→17:37)
[2017-01-29] MEDS: BACITRACIN OINT 15 GM TUBE EXT SCH (08:41)
--- NOTE | 2017-01-29 09:33 | Family Medicine Progress Note ---
Progress Note Date of Service Jan 29, 2017. Subjective Pt evaluation today including: conversation w/ patient, physical exam, lab review, review of inpatient medication list Pain: minimal PO Intake: good Voiding: no voiding problems, no incontinence Patient with no acute events overnight Spiked temp of 38 yesterday afternoon, given tylenol and subsided Swelling and erythema around wound has decreased a lot. Patient feeling much better Patient denies any night sweats, chills, other rashes, joint pain, chest pain, palpitations, shortness of breath, cough, dysuria, abdominal pain, nausea, vomiting or abdominal pain Additional Comments: please see above note for ROS Medications Current Inpatient Medications Medications (Trade) Dose Ordered Sig/Diamond Route Start Time Stop Time Status Last Admin Dose Admin Heparin Sodium (Porcine) (Heparin Sq 5000 Unit/0.5ml) 5,000 unit Q8H SQ 01/28/17 06:00 02/27/17 05:59 01/29/17 05:56 5,000 UNIT Acetaminophen (Tylenol Tab) 650 mg Q4H PRN PO 01/27/17 21:45 02/26/17 21:44 01/28/17 17:31 650 MG Al Hydrox/Mg Hydrox/Simethicone (Maalox Max Susp) 15 ml Q4H PRN PO 01/27/17 21:45 02/26/17 21:44 Magnesium Hydroxide (Milk Of Magnesia Susp) 30 ml Q6H PRN PO 01/27/17 21:45 02/26/17 21:44 Polyethylene (Miralax Powder Packet) 17 gm DAILY PRN PO 01/27/17 21:45 02/26/17 21:44 Zolpidem Tartrate (Ambien Tab) 5 mg HSZ PRN PO 01/27/17 21:45 02/26/17 21:44 Ondansetron HCl (Zofran Inj) 4 mg Q6H PRN IV 01/27/17 21:45 02/26/17 21:44 Tramadol HCl (Ultram Tab) 50 mg Q4H PRN PO 01/27/17 21:45 02/26/17 21:44 01/28/17 06:10 50 MG Lactobacillus Acidophilus (Floranex Tab) 4 tab TIDM PO 01/28/17 08:00 02/27/17 07:59 01/29/17 08:40 4 TAB Vancomycin HCl (Consult) 1 ea UD PRN N/A 01/27/17 23:15 02/26/17 23:14 Ceftriaxone Sodium 1000 mg/ Dextrose 60 ml @ 100 mls/hr Q24H IV 01/28/17 22:00 02/07/17 21:59 01/28/17 21:18 100 MLS/HR Vancomycin HCl 1250 mg/Sodium Chloride 275 ml @ 125 mls/hr Q12@0000,1200 IV 01/28/17 12:00 02/07/17 11:59 01/29/17 00:12 125 MLS/HR Bacitracin (Bacitracin Oint) 1 appln DAILY EXT 01/29/17 08:00 02/28/17 07:59 01/29/17 08:41 1 APPLN Objective Vital Signs Date Time Temp Pulse Resp B/P (MAP) Pulse Ox O2 Delivery O2 Flow Rate FiO2 01/29/17 07:19 37.4 82 16 141/99 (113) 93 Room Air 01/29/17 00:00 96 Room Air 01/28/17 23:32 36.7 72 20 145/95 (112) 95 Room Air 01/28/17 17:32 38.0 01/28/17 16:12 96 Room Air 01/28/17 14:29 37.0 77 18 149/95 (113) 96 Room Air 01/28/17 11:40 36.9 Physical Exam General Appearance: WD/WN, no apparent distress Respiratory/Chest: chest non-tender, lungs clear, no respiratory distress, no accessory muscle use Cardiovascular: regular rate, rhythm, no JVD, no murmur Abdomen: normal bowel sounds, non tender, soft Extremities: + pertinent finding (dressing under right armpit, wound appears less erythematous, smaller bandage then yesterday) Neurologic/Psychiatric: alert, normal mood/affect, oriented x 3 Laboratory Results Results Past 24 Hours Test 01/29/17 05:15 Range/Units White Blood Count 7.39 4.8-10.8 K/uL Red Blood Count 4.54 4.7-6.1 M/uL Hemoglobin 13.9 14.0-18.0 g/dL Hematocrit 40.4 42-52 % Mean Corpuscular Volume 89.0 80-100 fL Mean Corpuscular Hemoglobin 30.6 25-34 pg Mean Corpuscular Hemoglobin Concent 34.4 32-36 g/dl RDW Standard Deviation 43.2 36.4-46.3 fL RDW Coefficient of Variation 13.2 11.5-14.5 % Platelet Count 225 130-400 K/uL Mean Platelet Volume 9.3 7.4-10.4 fL Sodium Level 141 136-145 mmol/L Potassium Level 4.1 3.5-5.1 mmol/L Chloride Level 107 98-107 mmol/L Carbon Dioxide Level 28 21-32 mmol/L Anion Gap 6.0 3-11 mmol/L Blood Urea Nitrogen 11 7-18 mg/dl Creatinine 0.96 0.60-1.40 mg/dl Est Creatinine Clear Calc Drug Dose 102.3 ml/min Estimated GFR () 103.4 Estimated GFR (Non- 89.3 BUN/Creatinine Ratio 11.8 10-20 Random Glucose 94 70-99 mg/dl Calcium Level 8.5 8.5-10.1 mg/dl Assessment and Plan 56 y/o M with no significant PMH presented to [facility] on 01/27/2017 with a round central rash under his right armpit that was become progressively more painful and was associated with fevers and malaise. Rash appears to be erythema migrans rash. Patient found to have superimposed infection with abscess formation underneath rash. He went for I and D with surgery and is on IV antibiotics awaiting cultures from the wound. Lyme rash with superimposed abscess - Surgery consulted - Abscess drained, packed and sent for culture. - Continue IV antibiotics with Vancomycin and Ceftriaxone - Wound Gram stain with no WBC's. Culture still pending. Blood culture negative - IVF stopped. Tramadol prn for pain control BP elevated - 140's/90's. - would benefit from med for elevated blood pressure - possibly start as outpatient DVT prophylaxis - heparin sub q Resident Physician Supervision Note: I was present with PGY1 Dr. Sanket Overton during the history and exam. I discussed the case with the resident and agree with the findings and plan as documented in the note. Any exceptions or clarifications are listed here: none. Pt feels "much better / really good" appetite improved armpit on right feels better VSS BPs still mildly high gen - nad right axillae - erythema migrans rash improved; in center of the erythema migrans is an abscess site with mild swelling but improved from yesterday heart - RRR lungs - CTA b/l abd - soft, no HSM ext - no edema A/P: 1. primary lyme's disease - cont rocephin. Transition to doxy at discharge. 2. right axillary abscess s/p I/D - staph species growing; await final ID; cont IV vanco in meantime. 3. elevated BP w/o dx of HTN - follow for now. Dietary counseling. Family updated. Documented By: North Jacques MD Continued [facility] stay due to: multiple IV medications needed
[2017-01-29 10:00] VITALS: BP 143/88
[2017-01-29] MEDS: ACETAMINOPHEN 325 MG TAB PO PRN (10:56)
--- NOTE | 2017-01-29 13:12 | Surgery Progress Note ---
Surgery Progress Note Date of Service Jan 29, 2017. Subjective + feeling well, + complaints (soreness at the right axilla), + diet (tolerating diet), No nausea, No vomiting Objective Vital Signs: Date Time Temp Pulse Resp B/P (MAP) Pulse Ox O2 Delivery O2 Flow Rate FiO2 01/29/17 08:20 Room Air 01/29/17 07:19 37.4 82 16 141/99 (113) 93 Room Air 01/29/17 00:00 96 Room Air 01/28/17 23:32 36.7 72 20 145/95 (112) 95 Room Air 01/28/17 17:32 38.0 01/28/17 16:12 96 Room Air 01/28/17 14:29 37.0 77 18 149/95 (113) 96 Room Air General Appearance: WD/WN, no apparent distress Head: normocephalic, atraumatic Neck: trachea midline Respiratory/Chest: no respiratory distress, no accessory muscle use Laboratory Results: Results Past 24 Hours Test 01/29/17 05:15 Range/Units White Blood Count 7.39 4.8-10.8 K/uL Red Blood Count 4.54 4.7-6.1 M/uL Hemoglobin 13.9 14.0-18.0 g/dL Hematocrit 40.4 42-52 % Mean Corpuscular Volume 89.0 80-100 fL Mean Corpuscular Hemoglobin 30.6 25-34 pg Mean Corpuscular Hemoglobin Concent 34.4 32-36 g/dl RDW Standard Deviation 43.2 36.4-46.3 fL RDW Coefficient of Variation 13.2 11.5-14.5 % Platelet Count 225 130-400 K/uL Mean Platelet Volume 9.3 7.4-10.4 fL Sodium Level 141 136-145 mmol/L Potassium Level 4.1 3.5-5.1 mmol/L Chloride Level 107 98-107 mmol/L Carbon Dioxide Level 28 21-32 mmol/L Anion Gap 6.0 3-11 mmol/L Blood Urea Nitrogen 11 7-18 mg/dl Creatinine 0.96 0.60-1.40 mg/dl Est Creatinine Clear Calc Drug Dose 102.3 ml/min Estimated GFR () 103.4 Estimated GFR (Non- 89.3 BUN/Creatinine Ratio 11.8 10-20 Random Glucose 94 70-99 mg/dl Calcium Level 8.5 8.5-10.1 mg/dl Right axilla- there is still surrounding erythema present from incision site, improving. I&D incision open and packing present. Not a lot of drainage present. No induration or fluctuance. Assessment & Plan Cellulitis and Abscess of the right axilla s/p bedside I&D - gram stain showed no organisms, aerobic/anaerobic culture pending - Blood culture x 2 negative - leukocytosis resolved Plan: Removed packing from incision and placed bacitracin on it Does not require any further packing Apply bacitracin daily and gauze Continue IV antibiotics until discharge and place on some oral antibiotics for 5 -7 days Follow-up with Dr. Robles one week, please call office [phone] to make an appointment Our services signing off, thank you for the consultation Dr. Robles has seen and examined patient, agrees with above
[2017-01-29 15:12] VITALS: BP 127/85; PULSE 81; TEMP 36.8; O2SAT 97
[2017-01-29 16:22] VITALS: O2SAT 96
[2017-01-29] MEDS: CEFTRIAXONE SOD INJ 1,000 MG in DEXTROSE 5% 50ML 50 ML IV SCH (21:19)
[2017-01-29 23:21] VITALS: BP 121/83; PULSE 80; TEMP 36.9; O2SAT 94
[2017-01-29] MEDS ORDERED: VANCOMYCIN TROUGH ONE (23:30)
[2017-01-30] MEDS: HEPARIN SOD 5000 UNIT/0.5 ML CARP SQ SCH ×2 (05:34→13:28)
[2017-01-30 07:23] VITALS: BP 121/83; PULSE 81; TEMP 36.8; O2SAT 94
[2017-01-30 08:00] VITALS: O2SAT 94
[2017-01-30] MEDS: LACTOBACILLUS ACIDOPHILUS (FLORANEX) TAB PO SCH ×3 (08:23→17:39)
--- NOTE | 2017-01-30 08:23 | Family Medicine Progress Note ---
Progress Note Date of Service Jan 30, 2017. Objective Vital Signs Date Time Temp Pulse Resp B/P (MAP) Pulse Ox O2 Delivery O2 Flow Rate FiO2 01/30/17 07:23 36.8 81 20 121/83 (96) 94 01/30/17 00:00 Room Air 01/29/17 23:21 36.9 80 20 121/83 (96) 94 Room Air 01/29/17 16:22 96 Room Air 01/29/17 15:12 36.8 81 16 127/85 (99) 97 Room Air 01/29/17 10:00 143/88 (106) Resident Tracking Resident Involvement: Resident Care Provided Care Provided: Adult Hospital Medicine
--- NOTE | 2017-01-30 09:06 | Pharmacy Progress Note ---
Pharmacy Abx Dose Progress Nt Date of Service Jan 30, 2017. Pharmacy Dosing Scope The patient is currently receiving the following antimicrobial agents: * vancomycin 1250 mg IV every 12 hours * ceftriaxone 1000mg IV every 24 hours Objective Height (Feet): 5 Height (Inches): 10.00 Weight (Kilograms): 96.000 Vital Signs (Past 12Hrs) Vital Signs Past 12 Hours Date Time Temp Pulse Resp B/P (MAP) Pulse Ox O2 Delivery O2 Flow Rate FiO2 01/30/17 07:23 36.8 81 20 121/83 (96) 94 01/30/17 00:00 Room Air 01/29/17 23:21 36.9 80 20 121/83 (96) 94 Room Air Lab Results (24Hrs) Item Value Date Time Vancomycin Level Trough 8.5 mcg/ml 01/29/177 Micro Results Date/Time Source Procedure Growth Status 01/27/17 19:29 Blood Blood Culture - Preliminary NO GROWTH TO DATE. Resulted 01/27/17 19:19 Blood Blood Culture - Preliminary NO GROWTH TO DATE. Resulted 01/28/17 00:00 Tissue Axilla, Right Gram Stain - Final Resulted 01/28/17 00:00 Bacterial Culture - Preliminary Coag Neg Staphylococcus Resulted Risk Factors for Resistance none Assessment & Plan Assessment * 56 year old male receiving vancomycin and ceftriaxone for treatment of right axillary abscess, primary lyme's disease * Day # 410 of antimicrobial therapy * patient feeling improved * afebrile Plan * continue current regimen with hopes of transition to PO abx at discharge Vancomycin IV * Trough level of 8.5 mcg/mL is subtherapeutic * Change to 1250 mg IV every 8 hours * Goal trough level for cellulitis: ~15mcg/mL * Trough level ordered for: 01/31/17 prior to 18:00 dose Ceftriaxone IV * continue 1000mg IV q24 hours Pharmacy will continue to follow and will adjust dose/frequency as necessary. Thank you.
[2017-01-30] MEDS: VANCOMYCIN INJ 1,250 MG in SODIUM CHLORIDE 0.9% 250ML 250 ML IV SCH ×2 (11:05→17:39)
[2017-01-30] MEDS: BACITRACIN OINT 15 GM TUBE EXT SCH (11:05)
[2017-01-30] MEDS ORDERED: TRMCR180 EXT (13:05)
[2017-01-30] MEDS ORDERED: BCTO EXT (13:05)
[2017-01-30] MEDS ORDERED: DOXY100C76 PO (13:05)
--- NOTE | 2017-01-30 13:22 | Discharge Instructions ---
Discharge Instructions Date of Service Jan 30, 2017. Admission Reason for Admission: Cellulitis Of Arm Discharge Discharge Diagnosis / Problem: Axillary Abscess, early Lyme's Disease Discharge Goals Goal(s): Decrease discomfort, Improve disease control, Diagnostic testing, Therapeutic intervention Activity Recommendations Activity Limitations: resume your previous activity . Instructions / Follow-Up Instructions / Follow-Up You were admitted to hospital with a likely an abscess and rash likely secondary to a tick bite. The abscess was drained and you are being treated with antibiotics for both the abscess and Lyme's disease Wound care: - Apply bacitracin daily with dressing changes - Sensitivities are pending at discharge and so appropriate oral antibiotics have not been prescribed yet. You should receive a call by tomorrow to tell you what antibiotic is recommended and informing you that it has been sent to pharmacy. Please call the hospital back if you do not receive a call within 24hours. - Tylenol can be used if there is any ongoing pain. Please follow the instructions on the box for appropriate dosing/max doses. - Follow-up with Dr. Robles in one week, please call office [phone] to make an appointment Lyme rash: - Initial Lyme tests were negative. These can be repeated in 4-6 weeks, but it is not necessary to do so as your rash was consistent with the rash often seen with tick bites. - Continue 12 more days of doxycycline on discharge (for a 14 day course total) - This antibiotic might cause GI upset so take with food. It also makes skin sensitive to light, so constant sunscreen protection while outdoors is HIGHLY recommended. Eating foods with probiotics or probiotic tablets can also be helpful to reduce the risk of diarrhea. Skin Rash on back - Likely due to skin sensitivity to bed linens - Apply triamcinolone cream twice a day to the upper back for the next week, or until the rash resolves High blood pressures in the 140's/90's. - Possibly due to pain, but would need to be rechecked/monitored by your family doctor in the outpatient setting - See your family doctor in the next 1-2 weeks for reassessment Current Hospital Diet Patient's current hospital diet: Regular Diet Discharge Diet Recommended Diet: Regular Diet Procedures Procedures Performed: I/D abscess on right axillary at bedside Pending Studies Studies pending at discharge: yes List of pending studies: Wound culture Medical Emergencies . Who to Call and When: Medical Emergencies: If at any time you feel your situation is an emergency, please call 911 immediately. . Non-Emergent Contact Non-Emergency issues call your: Primary Care Provider, Surgeon Call Non-Emergent contact if: temperature is above 100.5, wound has increased drainage, wound has increased redness, wound has increased pain . . "Provider Documentation" section prepared by Kristin Dhillon. - Attending Attestation: Discharge care plan d/w PGY1 Dr. Kristin Dhillon. I agree with her discharge instructions as outlined. North Jacques MD . VTE Core Measure Inpt VTE Proph given/why not?: Unfractionated heparin SQ
--- NOTE | 2017-01-30 13:42 | Discharge Summary ---
Discharge Summary Date of Service Jan 30, 2017. (Alka. Dhillon MD) Discharge Summary Admission Date: Jan 27, 2017 at 21:45 Discharge Date: Jan 30, 2017 Discharge Disposition: Home Principal Diagnosis: Right axillary abscess and Lyme rash (Alka. Dhillon MD) Problems/Secondary Diagnoses: Elevated Blood Pressure without Diagnosis of HTN Early stage Lyme's Disease Contact Dermatitis - back (North Jacques MD) Medication Reconciliation New Medications: Doxycycline Monohydrate (Monodox) 100 Mg Cap 100 MG PO BID for 12 Days, #24 CAP Take first dose on evening of 01/30/17 Bacitracin (Bacitracin Zinc) 45 Appln/15 Gm Oint 1 APPLN EXT DAILY, #1 TUBE 1 Refill Apply to skin around above and around previous abscess at right axilla Triamcinolone Acet (Aristocort 0.1%) 240 Appln/80 Gm Cr 1 APPLN EXT BID, #1 TUBE 1 Refill Apply to skin of upper back for 1 week or until rash resolves Discharge Exam Patient states that he feels great. He denies acute issues overnight. Has not had fever in 2 days. Good arm ROM. No drainage. Rash improving. Patient keen for home. Review of Systems: Constitutional: No fever, No chills, No sweats, No weakness, No fatigue Respiratory: No cough, No wheezing, No shortness of breath, No dyspnea on exertion Cardiovascular: No chest pain, No orthopnea, No PND, No edema, No palpitations Abdomen: No pain, No nausea, No vomiting, No diarrhea, No constipation Musculoskeletal: No joint pain, No muscle pain, No calf pain Genitourinary - Male: No hematuria, No dysuria Integumentary: + rash (improving), No itch Physical Exam: General Appearance: WD/WN, no apparent distress Neck: supple, no adenopathy, no JVD Respiratory/Chest: lungs clear, normal breath sounds, no respiratory distress, no accessory muscle use, + pertinent finding (tenderness around palpation around the wound site) Cardiovascular: regular rate, rhythm, no murmur, normal peripheral pulses Abdomen / GI: normal bowel sounds, non tender, soft, no organomegaly Extremities: normal inspection, no calf tenderness, normal capillary refill , no pedal edema Neurologic/Psychiatric: alert, normal mood/affect, oriented x 3 Skin: warm/dry, + rash (Improving, now 5x5cm), + pertinent finding (Wound site looks clean, no active bleeding or drainage.) (Alka. Dhillon MD) Hospital Course 56 y/o M with no significant PMH presented to [facility] on 01/27/2017 with a round central rash under his right armpit that was become progressively more painful and was associated with fevers and malaise. Rash appears to be erythema migrans rash. Patient found to have superimposed infection with abscess formation underneath rash. He went for I&D with surgery and is on IV antibiotics awaiting cultures from the wound. Abscess - Surgery consulted - Blood culture negative - Abscess drained, packed and sent for culture. - Empiric IV Vancomycin and Ceftriaxone - Wound Gram stain with no WBC's. - IVF stopped. Tramadol PRN for pain control - Apply bacitracin daily with dressing changes - Wound culture show coag negative staph - Sensitivities are pending at discharge and so appropriate oral antibiotics have not been prescribed yet. - Plans to call patient tomorrow with appropriate antibiotic recommendations. - Follow-up with Dr. Robles in one week, patient to call office [phone] to make an appointment Lyme rash - Initial Lyme tests were negative. - But given rash consistent with Lyme's treated for Lyme's - IV ceftriaxone transitioned to PO doxycycline on discharge (for a 14 day course total) Skin Rash on back - Likely due to skin sensitivity to bed linens - Triamcinolone cream BID to the upper back for the next week, or until the rash resolves High blood pressures in the 140's/90's - Possibly due to pain, but would need to be rechecked/monitored by PCP in the outpatient setting - Advised to see PCP in 1-2 weeks for reassessment DVT prophylaxis - Heparin sub q Total Time Spent: Less than 30 minutes This includes examination of the patient, discharge planning, medication reconciliation, and communication with other providers. (Alka. Dhillon MD) Attending Attestation & Discharge Note: Pt seen/examined, chart reviewed, care plan d/w PGY1 Dr. Kristin Dhillon on day of discharge. I agree w/ the resendiz components of her discharge summary. 56yo male who presented with what appeared to be erythema migrans of the right axillae. He also had a superimposed axillary abscess. This ultimately required surgical I & D. The patient received IV antibiotic therapy with improvement in his right axillary findings. Culture from the axillary abscess ultimately grew coag negative staph - multiple strains. Fortunately the coag negative staph were susceptible to tetracyclines. He will complete a course of doxycycline for early stage Lyme's disease as well as the abscess. Discharge exam - gen - nad skin - right axillae - erythema migrans rash getting smaller; abscess cavity in center of axillae getting smaller, minimal drainage heart - RRR lungs - CTA b/l abd - soft, NT ext - no edema He will need f/u with his PCP and general surgery for not only the axillary abscess but also elevated blood pressures. The patient was counseled that the majority of his BP readings while here were either in the pre-HTN range or HTN range. No BP meds were initiated, however. North Jacques MD (North Jacques MD) Discharge Instructions Please refer to the electronic Patient Visit Report (Discharge Instructions) for additional information. (Alka. Dhillon MD) Additional Copies To Kojo Alejandre M.D.; Corine Robles MD
[2017-01-30 18:06] VITALS: BP 121/83; PULSE 81; TEMP 36.8; O2SAT 94
[2017-01-30] MEDS ORDERED: TRIAMCINOLONE ACET 0.1% CR 80 GM TUBE EXT SCH (20:00)
[2017-01-31] MEDS ORDERED: VANCOMYCIN TROUGH SCH (17:30)
--- NOTE | 2017-01-31 20:59 | Progress Note ---
Progress Note Date of Service Jan 31, 2017. (Alka. Dhillon MD) Progress Note Called patient to inform him that cultures for abscess revealed that the coag negative staph is sensitive to the doxycycline which the patient is already on for Lyme treatment, and the duration of treatment is sufficient for abscess treatment also. Unfortunately, was unable to reach patient, and as such, a voice message was left. Patient was advised to call [facility] if he had any further questions or concerns. (Alka. Dhillon MD) Attending Attestation - I agree with the recommendations as outlined by Dr. Kristin Dhillon, PGY1. North Jacques MD (North Jacques MD)
== END 2017-01-30 20:23 | disposition home or self-care (01) | DRG 868 ==
LOC: C.EDB 18:27 → C.4E 21:45 → ENRESERV 21:57
PROVIDERS: ADMIT Internal Medicine; ATTEND Internal Medicine
PROC: 0J963ZX Drainage of Chest Subcutaneous Tissue and Fascia, Percutaneous Approach, Diagnostic (ICD-10-PCS; principal; 2017-01-28)
DX: A69.29 Other conditions associated with Lyme disease (principal); L02.213 Cutaneous abscess of chest wall; Z86.718 Personal history of other venous thrombosis and embolism; S20.371A Other superficial bite of right front wall of thorax, initial encounter; Y92.89 Other specified places as the place of occurrence of the external cause; B95.7 Other staphylococcus as the cause of diseases classified elsewhere